=== PATIENT | female | born 1965 | race Caucasian/White ===

== ENCOUNTER 2020-07-09 01:34 | Emergency (ER) | payer OTHER ==
[2020-07-09] MEDS ORDERED: cloNIDine HCL 0.1 MG TAB PO ONE (02:30)
[2020-07-09 02:45] LABS: Basophils # (auto) 0 10 ^3/uL (0-0.2); Basophils % (auto) 0.2 % (0.0-2.0); Eosinophils # (auto) 0.2 10 ^3/uL (0-0.8); Eosinophils % (auto) 2.6 % (0.0-7.0); Hematocrit 43.7 % (36.0-46.0); Hemoglobin 15.5 g/dL (12.2-16.2); Lymphocytes # (auto) 2.1 10 ^3/uL (0.4-5.4); Lymphocytes % (auto) 21.3 % (10.0-50.0); Mean Corpuscular Hemoglobin 31.4 pg (28.0-32.0); Mean Corpuscular Hgb Conc. 35.4 g/dL (32.0-36.0); Mean Corpuscular Volume 88.9 fL (80.0-100.0); Monocytes # (auto) 0.7 10 ^3/uL (0-1.3); Monocytes % (auto) 6.9 % (0.0-12.0); Neutrophils # (auto) 6.7 10 ^3/uL (1.6-8.6); Platelet Count (auto) 243 10^3/uL (140-450); Red Blood Cells 4.92 10^6/uL (4.0-5.20); Red Cell Distribution Width 13.9 % (11.8-14.3); White Blood Cell 9.7 10^3/uL (4.4-10.8)
[2020-07-09 03:10] LABS: Albumin 3.1 g/dL (3.4-5.0); Anion Gap 5 (5-15); Blood Urea Nitrogen 21 mg/dL (7-18); Carbon Dioxide 26 mmol/L (21-32); Chloride 107 mmol/L (98-107); Glucose 108 mg/dL (74-106); Magnesium 2.2 mg/dL (1.6-2.6); Potassium 3.9 mmol/L (3.5-5.1); Sodium 138 mmol/L (136-145)
[2020-07-09 03:11] LABS: INR 0.94 (0.9-1.15)
[2020-07-09 03:16] LABS: Alanine Aminotransferase 28 U/L (13-56); Alkaline Phosphatase 78 U/L (45-117); Aspartate Aminotransferase 11 U/L (15-37); Bilirubin, Total 0.2 mg/dL (0.2-1.0); GFR African American 70 mL/min; GFR Non-African American 58 mL/min; Total Protein 7.6 g/dL (6.4-8.2)
[2020-07-09 05:25] VITALS: BP 140/81
== END 2020-07-09 05:46 | disposition left against medical advice (07) ==
LOC: ER 01:40
DX: I10 Essential (primary) hypertension (principal); R51.9 Headache, unspecified; R07.9 Chest pain, unspecified; R06.02 Shortness of breath; Z53.21 Procedure and treatment not carried out due to patient leaving prior to being seen by health care provider
CPT/HCPCS: 36415; 70450; 71046; 71250; 80053; 83735; 83880; 84484; 85025; 85379; 85610; 85730